=== PATIENT | male | born 1960 | race Caucasian/White ===

== ENCOUNTER 2024-10-12 17:30 | Emergency (ER) | payer MEDICAID, SELFPAY ==
[2024-10-12] VITALS (8 sets, daily range): BP systolic 159–220; BP diastolic 89–152; PULSE 78–95; RESP 16–18; TEMP 36.6–36.8; O2SAT 96–98; BMI 27.2
--- NOTE | 2024-10-12 17:34 | EKG_ITS ---
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
--- NOTE | 2024-10-12 17:35 | PD.EDMEDCL ---
ED Medical Clearance RME/HPI General Chief complaint: Medical Clearance Stated complaint: HIGH BP Time Seen by Provider: 10/12/24 17:33 Source: patient and police Arrival date/time: 10/12/24 17:30 Mode of arrival: ambulatory Limitations: no limitations RME / HPI RME / HPI Narrative: Patient is a 63-year-old male with a history of hypertension. He states he takes benazepril for this but did not take his dose today. He is here today under police custody for medical clearance. He was arrested with an unknown substance, was found to be hypertensive, routed here. Patient states he is asymptomatic. Denies any facial droop, vision changes, dysphagia, nausea, or vomiting. He has no chest pain or palpitations. No lower leg edema. He has no medical complaints at this time. Related Information Previous Rx's ?Medication ?Instructions ?Recorded acetaminophen 500 mg capsule 1,000 mg (2 x 500 mg) PO Q6H PRN 10/27/21 fever or pain #30 caps benazepril 40 mg tablet 40 mg PO QDAY #30 tabs 10/27/21 ibuprofen 800 mg tablet 800 mg PO TID PRN pain #30 tabs 10/27/21 Allergies Allergy/AdvReac Type Severity Reaction Status Date / Time NKA* Allergy Uncoded 10/12/24 17:31 Review of Systems Review of Systems Systems Reviewed: All systems reviewed, normal except as documented ED Exam General Limitations: Present no limitations General appearance: Present alert and in no apparent distress Head Head exam: Present atraumatic Eye Eye exam: Present normal appearance, PERRL and EOMI ENT ENT exam: Present normal exam, normal oropharynx and mucous membranes moist Neck Neck exam: Present normal inspection, full ROM and trachea midline Chest Chest inspection: Present normal inspection and symmetric chest wall rise Respiratory Respiratory exam: Present normal lung sounds bilaterally Cardiovascular Cardiovascular exam: Present regular rate, normal rhythm and normal heart sounds Abdominal Exam Abdominal exam: Present soft and normal bowel sounds Extremities Exam Extremities exam: Present normal inspection and full ROM Back Exam Back exam: Present normal inspection and full ROM Neurological Exam Neurological exam: Present alert and oriented X3 Psychiatric Psychiatric exam: Present normal affect and normal mood Skin Skin exam: Present warm, dry, intact and normal color Course Quality Measures none Orders Category Date Time Status EKG (ED ONLY) *Do not use* NOW Care 10/12/24 17:34 Completed EKG (ED Only) Stat Exams 10/12/24 17:34 Draft CBC Stat Lab 10/12/24 18:25 Completed CMP [Comprehensive Metabolic Panel] Stat Lab 10/12/24 18:25 Completed UA, C/S IF [Urinalysis, C/S if Indicated] Stat Lab 10/12/24 18:37 Completed Urine Culture Stat Lab 10/12/24 18:37 Received Lisinopril [Prinivil] Med 10/12/24 17:34 Discontinued 40 mg PO X1 ONE cloNIDine HCL [Catapres] Med 10/12/24 21:35 Discontinued 0.2 mg PO X1 ONE hydrALAZINE HCL [Apresoline] Med 10/12/24 19:40 Discontinued 20 mg PO X1 ONE hydrALAZINE HCL [Apresoline] Med 10/12/24 20:52 Discontinued 20 mg PO X1 ONE hydrALAZINE HCL [Apresoline] Med 10/12/24 20:54 Discontinued 25 mg PO X1 ONE Vital Signs Vital signs: Vital Signs Temperature 97.9 F 10/12/24 17:37 Pulse Rate 95 10/12/24 17:37 Respiratory Rate 18 10/12/24 17:37 Blood Pressure 220/152 H 10/12/24 17:37 Pulse Oximetry (%) 96 10/12/24 17:37 Oxygen Delivery Method Room Air 10/12/24 17:37 Medical Clearance MDM Narrative MDM Narrative:: Patient is a 63-year-old male with a history of hypertension. He states he takes benazepril for this but did not take his dose today. He is here today under police custody for medical clearance. He was arrested with an unknown substance, was found to be hypertensive, routed here. Patient states he is asymptomatic. Denies any facial droop, vision changes, dysphagia, nausea, or vomiting. He has no chest pain or palpitations. No lower leg edema. He has no medical complaints at this time. On exam, patient is nontoxic-appearing and in no visible signs stress. Patient data External records reviewed:: [facility] previous records and Other (specify) Clinical information provided by:: patient and law enforcement Social determinants that could affect healthcare access:: none Patient has the following chronic illnesses:: HTN How is presenting disease/condition affected by chronic disease/condition?: exacerbated by Evaluation data The following diagnostics were reviewed and interpreted by me:: lab results and EKG tracing(s) Lab and/or radiology exams considered but not ordered:: n/a Interpretation Summary: no evidence of end organ compromise Medications / Prescriptions Medications or Prescriptions considered but not ordered:: n/a Medication administrations:: Medication Administration History Discontinued Medications Clonidine (Clonidine Hcl 0.1 Mg Tablet) 0.2 mg PO X1 ONE Stop: 10/12/24 21:36 Last Admin: 10/12/24 21:46 Dose: 0.2 mg Documented By: VINOD Hydralazine HCl (Hydralazine Hcl 10 Mg Tablet) 20 mg PO X1 ONE Stop: 10/12/24 19:41 Last Admin: 10/12/24 20:18 Dose: 20 mg Documented By: THOM Hydralazine HCl (Hydralazine Hcl 25 Mg Tablet) 20 mg PO X1 ONE Stop: 10/12/24 20:53 Last Admin: 10/12/24 21:02 Dose: Not Given Documented By: THOM Non-Admin Reason: Discontinued Hydralazine HCl (Hydralazine Hcl 25 Mg Tablet) 25 mg PO X1 ONE Stop: 10/12/24 20:55 Last Admin: 10/12/24 21:05 Dose: 25 mg Documented By: VINOD Lisinopril (Lisinopril 20 Mg Tablet) 40 mg PO X1 ONE Stop: 10/12/24 17:35 Last Admin: 10/12/24 18:18 Dose: 40 mg Documented By: DO see above Consultations Consultation(s) initiated? (list below): No Diagnosis Medical Clearance Differential Diagnosis: other (hypertensive urgency ) Most likely diagnosis given after review of the tests above:: poorly controlled HTN Admission Indicated Admission indicated?: not indicated Admission Request Was there a request for admission?: No Disposition Plan Disposition Plan: Discharge Discharge Attestation Discharge Attestation: The patient and all family members were given an opportunity to ask questions and understood the discharge instructions. Discharge instructions specifically effects, indications for sooner follow up or return to the emergency department, and the expected course of current diagnosis. Patient condition: Stable Discharge Plan Plan Patient Disposition: HOME (Self Care) Patient condition on transfer: Stable Prescriptions/Referrals Prescriptions/Med Rec: No Action ibuprofen 800 mg tablet 800 mg PO TID PRN (Reason: pain) Qty: 30 0RF acetaminophen 500 mg capsule 1,000 mg PO Q6H PRN (Reason: fever or pain) Qty: 30 0RF benazepril 40 mg tablet 40 mg PO QDAY Qty: 30 0RF Referrals: No Primary/Family,Physician [Primary Care Provider] - In 1 week Problem List Clinical Impression: Medical clearance for incarceration, HTN (hypertension) Patient/Caregiver Discharge Instructions Education Materials: Blood Pressure Check Steps Additional Instructions: - You are medically cleared for further monitoring under police custody. - It is very important that you obtain a primary doctor and closely follow-up with the clinic regarding your blood pressure management. Your blood pressures are elevated and this will eventually lead to endorgan disease. - You may return to the emergency room at anytime for any worsening or emergent changes. Print Language: Setswana Stand Alone Forms: [employer] Award Info., Patient Portal Info Letter
[2024-10-12 18:32] LABS: Basophils # (Auto) 0.1 Thou/mm3 (0.0-0.2); Basophils % (Auto) 1 % (0-2.5); Eosinophils # (Auto) 0.3 Thou/mm3 (0.0-0.5); Eosinophils % (Auto) 3 % (0-10); Hematocrit 48.4 % (41.0-53.0); Hemoglobin 15.9 g/dL (13.5-16.0); Immature Granulocytes Auto 0.03 Thou/mm3 (0.00-0.00); Lymphocytes # (Auto) 1.7 Thou/mm3 (1.0-4.8); Lymphocytes % (Auto) 17 % (10-50); Mean Corpuscular HGB Conc 32.9 g/dl (31.0-37.0); Mean Corpuscular Hemoglobin 29.3 pg (25.0-35.0); Mean Corpuscular Volume 89 fL (80-100); Monocytes # (Auto) 0.7 Thou/mm3 (0.0-0.8); Monocytes % (Auto) 8 % (0-12); Neutrophils # (Auto) 6.8 Thou/mm3 (1.8-7.7); Neutrophils % (Auto) 71 % (37-80); Nucleated Red Blood Cell # 0.00 Thou/mm3 (0.00-0.00); Nucleated Red Blood Cell % 0 /100 WBC (0); Platelet Count 257 Thou/mm3 (140-440); RDW Standard Deviation 47.9 fL (35.1-43.9); Red Blood Count 5.43 Miln/mm3 (4.50-5.90); White Blood Count 9.6 Thou/mm3 (3.8-10.6)
[2024-10-12 18:43] LABS: Collection Type, Urine Voided; Squamous Epithelial Cell,Urine 0 /hpf (0-5)
[2024-10-12 18:50] LABS: Alanine Aminotransferase 21 U/L (10-49); Albumin, Serum 5.3 gm/dL (3.4-4.8); Albumin/Globulin Ratio 1.8 (1.2-2.2); Alkaline Phosphatase 107 U/L (46-116); Anion Gap 12 (7-16); Aspartate Amino Transferase 23 U/L (0-34); BUN/Creatinine Ratio 8 Ratio (12-20); Bilirubin,Total 0.6 mg/dL (0.3-1.2); Blood Urea Nitrogen 17 mg/dL (9-23); Calcium 10.4 mg/dL (8.3-10.6); Calcium (Corrected) 10.4 mg/dL (8.5-10.1); Carbon Dioxide 26.4 mMol/L (20.0-31.0); Chloride 109 mMol/L (98-107); Creatinine (Component) 2.1 mg/dL (0.6-1.3); Estimated Creatinine Clearance 33.7 mL/min (>60); Globulin 2.9 gm/dL (2.3-3.5); Glucose 112 mg/dL (74-106); Osmolality,Calculated 294 (275-295); Potassium 3.9 mMol/L (3.4-5.1); Sodium 147 mMol/L (136-145); Total Protein 8.2 gm/dL (5.7-8.2); eGFR 35 See Note
[2024-10-12 19:01] LABS: Bilirubin,Urine Negative (Negative); Blood,Urine Negative (Negative); Clarity,Urine Clear (Clear/Hazy); Color,Urine Yellow (Lt Yel-Yel); Glucose, Urine Negative (Negative); Hyaline Casts,Urine 2 /hpf (0-1); Ketones,Urine Negative (Negative); Leukocyte Esterase,Urine Positive (Negative); Nitrite,Urine Negative (Negative); PH,Urine 5.5 (5.0-7.0); Protein,Urine 1+ (Neg - Trace); RBC,Urine 3 /hpf (0-3); Specific Gravity,Urine 1.033 (1.001-1.035); Urobilinogen,Urine 3.0 mg/dL (0.0-1.0); WBC,Urine 15 /hpf (0-5)
[2024-10-12 19:06] LABS: Culture Indicated,Urine Yes
== END 2024-10-12 22:15 | disposition home or self-care (01) ==
PROVIDERS: Emergency Provider Physician Assistant Medical
DX: Z02.89 Encounter for other administrative examinations (principal); I10 Essential (primary) hypertension
CPT/HCPCS: 36415; 80053; 81001; 85025; 87086; 93005; 99283; A9270